=== PATIENT | female | born 1985 | race Caucasian/White ===

== ENCOUNTER 2024-08-05 18:50 | Emergency (ER) | payer BC ==
[2024-08-05 19:30] VITALS: RESP 18
[2024-08-05 19:53] LABS: Basophils # (A) 0.03 10*3/uL (0.00-0.10); Basophils % (A) 0.3 %; Eosinophils # (A) 0.09 10*3/uL (0.04-0.35); Eosinophils % (A) 0.8 %; HCT 36.6 % (37.2-46.3); HGB 12.8 g/dL (12.0-15.0); Lymphocytes # (A) 1.91 10*3/uL (0.90-5.00); Lymphocytes % (A) 16.5 %; MCH 29.3 pg (27.0-32.0); MCV 83.8 fL (80.0-97.0); Mean Platelet Volume 11.3 fL (9.5-12.2); Monocytes # (A) 0.57 10*3/uL (0.20-1.00); Monocytes % (A) 4.9 %; Neutrophils # (A) 8.94 10*3/uL (1.80-7.70); Neutrophils % (A) 77.2 %; Platelet Count 240 10*3/uL (140-440); RBC 4.37 10*6/uL (4.10-5.20); RDW 12.5 % (11.5-14.5); WBC 11.57 10*3/uL (4.50-10.00)
[2024-08-05 19:57] LABS: Appearance,Urine Clear (Clear); Bacteria,Urine Occasional /hpf; Bilirubin,Urine Negative (Negative); Blood,Urine Negative (Negative); Color,Urine Colorless; Glucose,Urine (UA) Negative (Negative); Ketones,Urine Trace (Negative); Leukocyte Esterase,Urine Large (Negative); Nitrite,Urine Negative (Negative); PH, Urine 6.5 (5.0-8.0); Protein,Urine Trace (Negative); RBC,Urine 2 /hpf (0-5); Specific Gravity,Urine 1.002 (1.001-1.035); Squamous Epithelial Cell,Urine 1 /hpf (0-4); Urobilinogen,Urine <2.0 mg/dL (<2.0); WBC,Urine 36 /hpf (0-5)
[2024-08-05 20:14] LABS: ALT 12 U/L (4-34); AST 15 U/L (14-36); African American GFR (CKD) >90 (>60 ml/min/1.73 sqM); Albumin 4.5 g/dL (3.5-5.0); Alkaline Phosphatase 84 U/L (38-126); Anion Gap 10 mmol/L; Blood Urea Nitrogen 8 mg/dL (7-17); Calcium 9.9 mg/dL (8.4-10.2); Carbon Dioxide 24 mmol/L (22-30); Chloride 101 mmol/L (98-107); Glucose 92 mg/dL (74-99); Non-African American GFR(CKD) >90 (>60 ml/min/1.73 sqM); Potassium 3.7 mmol/L (3.5-5.1); Sodium 135 mmol/L (137-145); Total Bilirubin 0.7 mg/dL (0.2-1.3); Total Protein 7.6 g/dL (6.3-8.2)
--- NOTE | 2024-08-05 20:55 | ED ---
General Adult HPI - General Chief complaint: Abdominal Pain Stated complaint: Abd pain Time Seen by Provider: 08/05/24 20:16 Source: patient, RN notes reviewed Mode of arrival: ambulatory Limitations: no limitations - History of Present Illness Initial comments: 38-year-old female presents to the emergency department left flank and left lower quadrant abdominal pain x 1 week. Patient states that the pain has been persistent. She does note that the pain is sharp in nature. She does note that sometimes waxes and wanes. She states that she had worse pain on Thursday. She notes at that time she did have some blood in her urine. She denies any sang quency or burning with urination. Denies any fever, chills. Denies any nausea, vomiting, diarrhea or constipation. - Related Data Home Medications Medication Instructions Recorded Confirmed 78/Iron/Folate 1/Dha 1 each PO DAILY 02/01/18 02/01/18 [Prenate Dha Softgel] Previous Rx's Medication Instructions Recorded Cephalexin [Keflex] 500 mg PO BID #20 cap 08/05/24 Allergies Allergy/AdvReac Type Severity Reaction Status Date / Time No Known Allergies Allergy Verified 08/05/24 19:30 Review of Systems ROS Statement: Those systems with pertinent positive or pertinent negative responses have been documented in the HPI. ROS Other: All systems not noted in ROS Statement are negative. Past Medical History Past Medical History: No Reported History History of Any Multi-Drug Resistant Organisms: None Reported Additional Past Surgical History / Comment(s): ectopic with right tube removal Past Anesthesia/Blood Transfusion Reactions: No Reported Reaction Past Psychological History: No Psychological Hx Reported Smoking Status: Never smoker Past Alcohol Use History: Occasional Past Drug Use History: None Reported - Past Family History Mother Family Medical History: Cancer General Exam Limitations: no limitations General appearance: alert, in no apparent distress Head exam: Present: atraumatic, normocephalic, normal inspection Eye exam: Present: normal appearance, PERRL, EOMI. Absent: scleral icterus, conjunctival injection, periorbital swelling ENT exam: Present: normal exam, mucous membranes moist Respiratory exam: Present: normal lung sounds bilaterally. Absent: respiratory distress, wheezes, rales, rhonchi, stridor Cardiovascular Exam: Present: regular rate, normal rhythm, normal heart sounds. Absent: systolic murmur, diastolic murmur, rubs, gallop, clicks GI/Abdominal exam: Present: soft, normal bowel sounds. Absent: distended, tenderness, guarding, rebound, rigid Extremities exam: Present: normal inspection, full ROM, normal capillary refill. Absent: tenderness, pedal edema, joint swelling, calf tenderness Neurological exam: Present: alert, oriented X3 Psychiatric exam: Present: normal affect, normal mood Skin exam: Present: warm, dry, intact, normal color. Absent: rash Course Vital Signs 08/05/24 08/05/24 19:26 23:12 Temperature 97.8 F 98.0 F Pulse Rate 113 H 90 Respiratory 18 18 Rate Blood Pressure 155/91 123/94 O2 Sat by Pulse 99 100 Oximetry Medical Decision Making - Medical Decision Making Was pt. sent in by a medical professional or institution (RUSTY Bryson, [employer], urgent care, hospital, or intermediate...) When possible be specific @ -No Did you speak to anyone other than the patient for history (EMS, parent, family, police, friend...)? What history was obtained from this source @ -No Did you review nursing and triage notes (agree or disagree)? Why? @ -I reviewed and agree with nursing and triage notes Were old charts reviewed (outside hosp., previous admission, EMS record, old EKG, old radiological studies, urgent care reports/EKG's, intermediate records)? Report findings @ -No old charts were reviewed Differential Diagnosis (chest pain, altered mental status, abdominal pain women, abdominal pain men, vaginal bleeding, weakness, fever, dyspnea, syncope, headache, dizziness, GI bleed, back pain, seizure, CVA, palpatations, mental health, musculoskeletal)? @ -Differential Abdominal Pain Women: Appendicitis, Cholecystitis, diverticulosis, ischemic bowel, pancreatitis, hepatitis, UTI, gastroenteritis, AAA, incarcerated hernia, bowel obstruction, constipation, inflammatory bowel, hepatitis, peptic ulcer disease, splenic infa rction, perforated viscus, vulvitis, ovarian torsion, PID, kidney stone, placenta abruption, this is not meant to be an all-inclusive list ] EKG interpreted by me (3pts min.). @ -None X-rays interpreted by me (1pt min.). @ -None done CT interpreted by me (1pt min.). @ -None done U/S interpreted by me (1pt. min.). @ -Ultrasound of the kidneys and bladder reveal mild hydronephrosis on the left Ultrasound of the pelvis reveals normal waveforms to bilateral ovaries What testing was considered but not performed or refused? (CT, X-rays, U/S, labs)? Why? @ -None What meds were considered but not given or refused? Why? @ -None Did you discuss the management of the patient with other professionals (professionals i.e. , PA, L[employer] SLEEVE SETTER, lab, RT, psych nurse, nephrology social worker, campaign fundraiser, teacher, contracts officer, classification case manager)? Give summary @ -No Was smoking cessation discussed for >3mins.? @ -No Was critical care preformed (if so, how long)? @ -No Were there social determinants of health that impacted care today? How? (Homelessness, low income, unemployed, alcoholism, drug addiction, transportatio n, low edu. Level, literacy, decrease access to med. care, senior living, rehab)? @ -No Was there de-escalation of care discussed even if they declined (Discuss DNR or withdrawal of care, Hospice)? DNR status @ -No What co-morbidities impacted this encounter? (DM, HTN, Smoking, COPD, CAD, Cancer, CVA, ARF, Chemo, Hep., AIDS, mental health diagnosis, sleep apnea, morbid obesity)? @ -None Was patient admitted / discharged? Hospital course, mention meds given and route, prescriptions, significant lab abnormalities, going to OR and other pertinent info. @ -Discharge. Patient presented to the emergency department for left flank and left-sided abdominal pain. Laboratory studies obtainedRevealing WBC of 11.5; CMP is nonactionable UA shows trace protein, trace ketones, large leukocyte esterase, 36 WBCs. Urine hCG was not detected. Renal ultrasound reveals mild hydronephrosis. Pelvic ultrasound shows normal waveforms to bilateral ovaries. I discussed the findings with the patient. I did recommend that she had a CT scan performed. The patient refused this study. A urine culture will be obtained. Patient will be started on antibiotics. I advised follow-up with urology. Strict return precautions discussed. Patient understanding agreeable with plan. Patient stable at time of discharge. Case discussed with Dr. Dickerson. Undiagnosed new problem with uncertain prognosis? @ -No Drug Therapy requiring intensive monitoring for toxicity (Heparin, Nitro, Insulin, Cardizem)? @ -No Were any procedures done? @ -No Diagnosis/symptom? @ -UTI Acute, or Chronic, or Acute on Chronic? @ -Acute Uncomplicated (without systemic symptoms) or Complicated (systemic symptoms)? @ -Uncomplicated Side effects of treatment? @ -No Exacerbation, Progression, or Severe Exacerbation? @ -No Poses a threat to life or bodily function? How? (Chest pain, [place], [place], pneumonia, PE, COPD, DKA, ARF, appy, cholecystitis, CVA, Diverticulitis, Homicidal, Suicidal, threat to staff... and all critical care pts) @ -No - Lab Data Result diagrams: 08/05/24 19:44 08/05/24 19:44 Lab Results 08/05/24 08/05/24 08/05/24 Range/Units 19:35 19:35 19:44 WBC 11.57 H (4.50-10.00) 10*3/uL RBC 4.37 (4.10-5.20) 10*6/uL Hgb 12.8 (12.0-15.0) g/dL Hct 36.6 L (37.2-46.3) % MCV 83.8 (80.0-97.0) fL MCH 29.3 (27.0-32.0) pg MCHC 35.0 (32.0-37.0) g/dL Plt Count 240 (140-440) 10*3/uL MPV 11.3 (9.5-12.2) fL Immature Gran % (Auto) 0.3 % Neutrophils % 77.2 % Lymphocytes % 16.5 % Monocytes % 4.9 % Eosinophils % 0.8 % Basophils % 0.3 % Immature Gran # 0.03 (0.00-0.04) 10*3/uL Neutrophils # 8.94 H (1.80-7.70) 10*3/uL Lymphocytes # 1.91 (0.90-5.00) 10*3/uL Monocytes # 0.57 (0.20-1.00) 10*3/uL Eosinophils # 0.09 (0.04-0.35) 10*3/uL Basophils # 0.03 (0.00-0.10) 10*3/uL Sodium (137-145) mmol/L Potassium (3.5-5.1) mmol/L Chloride (98-107) mmol/L Carbon Dioxide (22-30) mmol/L Anion Gap mmol/L BUN (7-17) mg/dL Creatinine (0.52-1.04) mg/dL Est GFR (CKD-EPI)AfAm (>60 ml/min/1.73 sqM) Est GFR (CKD-EPI)NonAf (>60 ml/min/1.73 sqM) Glucose (74-99) mg/dL Calcium (8.4-10.2) mg/dL Total Bilirubin (0.2-1.3) mg/dL AST (14-36) U/L ALT (4-34) U/L Alkaline Phosphatase (38-126) U/L Total Protein (6.3-8.2) g/dL Albumin (3.5-5.0) g/dL Urine Color Colorless Urine Appearance Clear (Clear) Urine pH 6.5 (5.0-8.0) Ur Specific [place] 1.002 (1.001-1.035) Urine Protein Trace H (Negative) Urine Glucose (UA) Negative (Negative) Urine Ketones Trace H (Negative) Urine Blood Negative (Negative) Urine Nitrite Negative (Negative) Urine Bilirubin Negative (Negative) Urine Urobilinogen <2.0 (<2.0) mg/dL Ur Leukocyte Esterase Large H (Negative) Urine RBC 2 (0-5) /hpf Urine WBC 36 H (0-5) /hpf Ur Squamous Epith Cells 1 (0-4) /hpf Urine Bacteria Occasional H (None) /hpf Urine HCG, Qual Not Detected (Not Detectd) 08/05/24 Range/Units 19:44 WBC (4.50-10.00) 10*3/uL RBC (4.10-5.20) 10*6/uL Hgb (12.0-15.0) g/dL Hct (37.2-46.3) % MCV (80.0-97.0) fL MCH (27.0-32.0) pg MCHC (32.0-37.0) g/dL Plt Count (140-440) 10*3/uL MPV (9.5-12.2) fL Immature Gran % (Auto) % Neutrophils % % Lymphocytes % % Monocytes % % Eosinophils % % Basophils % % Immature Gran # (0.00-0.04) 10*3/uL Neutrophils # (1.80-7.70) 10*3/uL Lymphocytes # (0.90-5.00) 10*3/uL Monocytes # (0.20-1.00) 10*3/uL Eosinophils # (0.04-0.35) 10*3/uL Basophils # (0.00-0.10) 10*3/uL Sodium 135 L (137-145) mmol/L Potassium 3.7 (3.5-5.1) mmol/L Chloride 101 (98-107) mmol/L Carbon Dioxide 24 (22-30) mmol/L Anion Gap 10 mmol/L BUN 8 (7-17) mg/dL Creatinine 0.60 (0.52-1.04) mg/dL Est GFR (CKD-EPI)AfAm >90 (>60 ml/min/1.73 sqM) Est GFR (CKD-EPI)NonAf >90 (>60 ml/min/1.73 sqM) Glucose 92 (74-99) mg/dL Calcium 9.9 (8.4-10.2) mg/dL Total Bilirubin 0.7 (0.2-1.3) mg/dL AST 15 (14-36) U/L ALT 12 (4-34) U/L Alkaline Phosphatase 84 (38-126) U/L Total Protein 7.6 (6.3-8.2) g/dL Albumin 4.5 (3.5-5.0) g/dL Urine Color Urine Appearance (Clear) Urine pH (5.0-8.0) Ur Specific [place] (1.001-1.035) Urine Protein (Negative) Urine Glucose (UA) (Negative) Urine Ketones (Negative) Urine Blood (Negative) Urine Nitrite (Negative) Urine Bilirubin (Negative) Urine Urobilinogen (<2.0) mg/dL Ur Leukocyte Esterase (Negative) Urine RBC (0-5) /hpf Urine WBC (0-5) /hpf Ur Squamous Epith Cells (0-4) /hpf Urine Bacteria (None) /hpf Urine HCG, Qual (Not Detectd) Disposition Clinical Impression: Abdominal pain, Hydronephrosis Disposition: HOME SELF-CARE Condition: Stable Instructions (If sedation given, give patient instructions): Abdominal Pain (ED) Additional Instructions: Please follow up with your doctor. Return to the emergency department for new or worsening symptoms. Prescriptions: Cephalexin [Keflex] 500 mg PO BID #20 cap Is patient prescribed a controlled substance at d/c from ED?: No Referrals: [facility] [NON-STAFF] - 1-2 days (Contact a primary care office to become established with a provider.) None,Stated [Primary Care Provider] - 1-2 days Domo Pastor MD [STAFF PHYSICIAN] - 1-2 days Forms: Area PCPs
[2024-08-05] MEDS: SODIUM CHLORIDE 0.9% 1,000 ML IV ONE (21:12)
--- NOTE | 2024-08-05 22:01 | US ---
EXAMINATION TYPE: US kidneys/renal and bladder DATE OF EXAM: 08/05/2024 COMPARISON: NONE CLINICAL INDICATION: Female, 38 years old with history of lt sided pain; patient states left sided ab d pain TECHNIQUE: Grayscale imaging of the bilateral kidneys and urinary bladder: FINDINGS: EXAM MEASUREMENTS: Right Kidney: 10.3 x 4.0 x 5.6 cm Left Kidney: 10.7 x 5.4 x 5.3 cm slightly limited due to rib shadows Right Kidney: wnl, no evidence for hydronephrosis, mass or renal calculus. Left Kidney: No calculi visualized. mild dilation of the collecting system. Bladder: wnl Bilateral Jets seen: yes There is no evidence for hydronephrosis at this point in time. No nephrolithiasis is seen. No isaac s are identified. The urinary bladder is anechoic. IMPRESSION: Mild left hydronephrosis. Correlate for obstructive uropathy. Consider CT renal stone protocol. [facility], , 08/05/2024 9:59 PM
--- NOTE | 2024-08-05 22:02 | US ---
EXAMINATION TYPE: US transvaginal DATE OF EXAM: 08/05/2024 COMPARISON: NONE CLINICAL INDICATION: Female, 38 years old with history of lt sided pain; left sided abd pain TECHNIQUE: Transvaginal (TV) and Transabdominal (TA) . Transvaginal sonographic images were medically necessary to better assess the following anatomy: Ovar ies Doppler imaging: Color Doppler Images were obtained. Spectral doppler images were obtained. FINDINGS: Date of LMP: 2 mondays ago EXAM MEASUREMENTS: Uterus: 9.5 x 5.3 x 6.7 cm Endometrial Stripe: 1.4 cm Right Ovary: 4.3 x 3.1 x 2.5 cm Left Ovary: 3.1 x 1.5 x 2.4 cm slightly limited due to abundance of peristalsing bowel 1. Uterus: Anteverted C section scar seen. there is a 1.0 x 0.3cm anechoic area seen within the JOSE LUIS S possibly representing some endometrial blood products/fluid. 2. Endometrium: wnl as best seen 3. Right Ovary: 2.6cm dominant follicle seen within 4. Left Ovary: wnl Spectral, color and waveform doppler imaging shows good arterial and venous flow within the ovaries ; there is no evidence for ovarian torsion. 5. Bilateral Adnexa: prominent vessels in left adnexa measuring 0.8cm 6. Posterior cul-de-sac: small amount of free fluid presumably physiologic. IMPRESSION: 1. No evidence for acute process. 2. Appropriate arterial and venous spectral waveforms to the ovaries. 3. Dilated vessels in the left adnexa correlate for pelvic congestion syndrome. [facility], , 08/05/2024 10:00 PM
[2024-08-05 23:14] VITALS: BP 123/94; PULSE 90; TEMP 98
== END 2024-08-05 23:13 | disposition home or self-care (01) ==
LOC: EC 18:50
DX: N13.30 Unspecified hydronephrosis (principal)
CPT/HCPCS: 36415; 76770; 76830; 80053; 81001; 81025; 85025; 93975; 99284